=== PATIENT | male | born 1975 | race Caucasian/White ===

== ENCOUNTER 2016-07-28 15:46 | Emergency (ER) | payer OTHER ==
[2016-07-28 16:06] VITALS: BP 124/69; PULSE 77; RESP 18; TEMP 97.7
--- NOTE | 2016-07-28 16:26 | ED ---
ENT HPI - General Chief complaint: Dental/Oral Stated complaint: Dental Pain Time Seen by Provider: 07/28/16 16:08 Source: patient, RN notes reviewed Mode of arrival: ambulatory Limitations: no limitations - History of Present Illness Initial comments: 41-year-old male presents emergency Department chief complaint dental pain, lip swelling. Patient states it started this morning. Patient has multiple bad teeth. Patient states that that he has had ALLERGIC reaction because he had swelling to his lip but states he took Benadryl no relief. Patient states his symptoms are not worsening. Denies any difficulty breathing noted swelling. Patient states she also has an itchy right hand itchy right foot. Patient states that he started this morning also. Patient denies any rashes no fevers no chills. - Related Data Previous Rx's Medication Instructions Recorded Acetaminophen-Codeine 300-30mg 1 tab PO Q4H PRN #20 tablet 07/28/16 [Tylenol #3] Penicillin V Potassium [Pen Vee K] 500 mg PO QID #40 tab 07/28/16 Allergies Allergy/AdvReac Type Severity Reaction Status Date / Time No Known Allergies Allergy Verified 07/28/16 16:10 Review of Systems ROS Statement: Those systems with pertinent positive or pertinent negative responses have been documented in the HPI. ROS Other: All systems not noted in ROS Statement are negative. Past Medical History Past Medical History: No Reported History History of Any Multi-Drug Resistant Organisms: None Reported Past Surgical History: No Surgical Hx Reported Past Psychological History: No Psychological Hx Reported Smoking Status: Current every day smoker Past Alcohol Use History: None Reported Past Drug Use History: None Reported General Exam Limitations: no limitations General appearance: alert, in no apparent distress Head exam: Present: atraumatic, normocephalic, normal inspection Eye exam: Present: normal appearance, PERRL, EOMI. Absent: scleral icterus, conjunctival injection, periorbital swelling ENT exam: Present: mucous membranes moist. Absent: normal oropharynx ( Edentulous, there is mild left lower lip swelling minimally tender, there is mild erythema in the gumline but no drainable abscess.) Neck exam: Present: normal inspection. Absent: tenderness, meningismus, lymphadenopathy Respiratory exam: Present: normal lung sounds bilaterally. Absent: respiratory distress, wheezes, rales, rhonchi, stridor Cardiovascular Exam: Present: regular rate, normal rhythm, normal heart sounds. Absent: systolic murmur, diastolic murmur, rubs, gallop, clicks Extremities exam: Present: normal inspection, full ROM, normal capillary refill. Absent: tenderness, pedal edema, joint swelling, calf tenderness Back exam: Present: normal inspection, full ROM. Absent: tenderness Neurological exam: Present: alert, oriented X3, CN II-XII intact Psychiatric exam: Present: normal affect, normal mood Skin exam: Present: warm, dry, intact, normal color. Absent: rash Course Vital Signs 07/28/16 16:03 Temperature 97.7 F Pulse Rate 77 Respiratory 18 Rate Blood Pressure 124/69 O2 Sat by Pulse 96 Oximetry Medical Decision Making - Medical Decision Making 41-year-old male presented for dental pain. Patient was placed on antibiotics, pain medication at this time. Patient does not appear to be abnormal reaction. Patient was discharged with penicillin and Tylenol with codeine. Return parameters were discussed. Disposition Clinical Impression: Dental infection Disposition: HOME SELF-CARE Condition: Stable Instructions: Toothache (ED) Additional Instructions: Please return to the Emergency Department if symptoms worsen or any other concerns. Prescriptions: Acetaminophen-Codeine 300-30mg [Tylenol #3] 1 tab PO Q4H PRN #20 tablet PRN Reason: pain Penicillin V Potassium [Pen Vee K] 500 mg PO QID #40 tab Referrals: None,Stated [Primary Care Provider] - 1-2 days
== END 2016-07-28 16:30 | disposition home or self-care (01) ==
LOC: EC 15:46
DX: K04.7 Periapical abscess without sinus (principal); F17.200 Nicotine dependence, unspecified, uncomplicated
CPT/HCPCS: 99282

== ENCOUNTER 2017-08-27 17:21 | Emergency (ER) | payer OTHER ==
[2017-08-27 17:38] VITALS: RESP 18
[2017-08-27] MEDS ORDERED: diphenhydrAMINE 50 MG/ML 1 ML VIAL IVP STA (17:54)
[2017-08-27] MEDS ORDERED: SODIUM CHLORIDE 0.9% 1,000 ML IV ONE (17:54)
[2017-08-27] MEDS ORDERED: methylPREDNISolone SOD SUCCI 125 MG/2 ML VIAL IV STA (17:54)
[2017-08-27] MEDS ORDERED: FAMOTIDINE 20 MG TAB PO STA (17:55)
--- NOTE | 2017-08-27 17:56 | ED ---
ENT HPI - General Chief complaint: ENT Stated complaint: facial swelling Time Seen by Provider: 08/27/17 17:39 Source: patient Mode of arrival: ambulatory Limitations: no limitations - History of Present Illness Initial comments: Patient is a 42-year-old male presenting for right-sided facial swelling. He states that he woke up this morning at 9 AM and hadn't significant swelling with the right greater than the left. He states that this happened several months ago but at that time he also had and swelling. This morning, he took some Benadryl but there is minimal response at that time but now he has very improved symptoms. He denies any airway compromise such as tongue swelling, difficulty breathing, difficulty swallowing and states that he does not take any medications at all. He also denies any fevers or chills. - Related Data Home Medications Medication Instructions Recorded Confirmed diphenhydrAMINE HCL [Benadryl] 100 mg PO BID PRN 08/27/17 08/27/17 Previous Rx's Medication Instructions Recorded EPINEPHrine (Auto Inject) [Epipen] 0.3 mg IM ONCE PRN #2 syringe 08/27/17 predniSONE 50 mg PO DAILY #5 tablet 08/27/17 Allergies Allergy/AdvReac Type Severity Reaction Status Date / Time No Known Allergies Allergy Verified 08/27/17 18:21 Review of Systems ROS Statement: Those systems with pertinent positive or pertinent negative responses have been documented in the HPI. Constitutional: Negative for chills, fatigue and fever. HENT: Negative for congestion. Positive for right-sided facial swelling, bilateral lip swelling Respiratory: Negative for chest tightness, shortness of breath and wheezing. Negative for cough Cardiovascular: Negative for chest pain and palpitations. Gastrointestinal: Negative for abdominal pain. Negative for abdominal distention , diarrhea, nausea and vomiting. Genitourinary: Negative for dysuria. Musculoskeletal: Negative for back pain, neck pain and neck stiffness. Skin: Negative for color change. Neurological: Negative for dizziness, speech difficulty, weakness and light- headedness. Psychiatric/Behavioral: Negative for agitation and confusion. Negative for anxiety ROS Other: All systems not noted in ROS Statement are negative. Past Medical History Past Medical History: No Reported History History of Any Multi-Drug Resistant Organisms: None Reported Past Surgical History: No Surgical Hx Reported Past Psychological History: No Psychological Hx Reported Smoking Status: Current every day smoker Past Alcohol Use History: None Reported Past Drug Use History: None Reported General Exam - General Exam Comments Initial Comments: Constitutional: Pt is oriented to person, place, and time. Pt appears well- developed and well-nourished. No distress. HENT: Head: Normocephalic and atraumatic. Mild swelling of the right cheek and lips. No oral pharyngeal swelling or tongue swelling Eyes: EOM are normal. Neck: Normal range of motion. Neck supple. Cardiovascular: Normal rate, regular rhythm, S1 normal, S2 normal and normal heart sounds. Exam reveals no gallop and no friction rub. No murmur heard. Pulmonary/Chest: Effort normal and breath sounds normal. No tachypnea and no bradypnea. No respiratory distress. No wheezes or rales noted. Abdominal: Soft. Bowel sounds are normal. Pt exhibits no shifting dullness, no distension, no pulsatile liver, no fluid wave, no abdominal bruit and no ascites. There is no tenderness. There is no rigidity, no rebound, no guarding, no tenderness at McBurney's point and negative Farrar's sign. Musculoskeletal: Normal range of motion. Neurological: Pt is alert and oriented to person, place, and time. No cranial nerve deficit. Skin: Skin is warm and dry. No rash noted. Pt is not diaphoretic. No erythema. No pallor. Psychiatric: Pt has a normal mood and affect. Pt behavior is normal. Thought content normal. Limitations: no limitations Course Vital Signs 08/27/17 17:35 Temperature 97.8 F Pulse Rate 70 Respiratory 18 Rate Blood Pressure 133/81 O2 Sat by Pulse 97 Oximetry Medical Decision Making - Medical Decision Making Based on H&P, this appears to be secondary to an ALLERGIC reaction of unknown etiology. This is not likely to be drug induced angioedema as the patient denies any medication usage. Patient was given Solu-Medrol, Zantac, here in the emergency department as well as Benadryl and continue to see improvement of the facial swelling. Advanced imaging was not completed as there did not appear to be any infectious process. Also, there is no airway compromise and the patient was talking without any slurring of speech and swallowing his own secretions. Because of this, it is felt that the patient could be safely discharged with a prescription for prednisone as well as epinephrine injector. He was also advised to take Benadryl for next 24-48 hours. He was advised to follow up with PCP in next 1-2 days which she was agreeable to. Disposition Clinical Impression: Allergic reaction Disposition: HOME SELF-CARE Condition: Good Instructions: Urticaria (ED), Allergies (ED) Prescriptions: EPINEPHrine (Auto Inject) [Epipen] 0.3 mg IM ONCE PRN #2 syringe PRN Reason: Anaphylaxis predniSONE 50 mg PO DAILY #5 tablet Is patient prescribed a controlled substance at d/c from ED?: No Referrals: None,Stated [Primary Care Provider] - 1-2 days Time of Disposition: 19:09
[2017-08-27 19:28] VITALS: BP 121/75; PULSE 56; TEMP 97.7
== END 2017-08-27 19:28 | disposition home or self-care (01) ==
LOC: EC 17:21
DX: T78.40XA Allergy, unspecified, initial encounter (principal); F17.200 Nicotine dependence, unspecified, uncomplicated
CPT/HCPCS: 99283; 96374; 96375; 96361; J1200; J2930

== ENCOUNTER 2017-09-18 14:39 | Emergency (ER) | payer OTHER ==
[2017-09-18] MEDS ORDERED: methylPREDNISolone SOD SUCCI 125 MG/2 ML VIAL IV STA (15:48)
[2017-09-18 16:10] LABS: Basophils % (A) 0 %; Eosinophils # (A) 0.2 k/uL (0-0.7); Eosinophils % (A) 2 %; HCT 50.2 % (39.0-53.0); HGB 16.5 gm/dL (13.0-17.5); Lymphocytes # (A) 2.1 k/uL (1.0-4.8); Lymphocytes % (A) 21 %; MCH 30.2 pg (25.0-35.0); MCHC 32.8 g/dL (31.0-37.0); MCV 92.1 fL (80.0-100.0); Mean Platelet Volume 7.3; Monocytes # (A) 0.5 k/uL (0-1.0); Monocytes % (A) 5 %; Neutrophils # (A) 7.1 k/uL (1.3-7.7); Neutrophils % (A) 70 %; Platelet Count 227 k/uL (150-450); RBC 5.45 m/uL (4.30-5.90); RDW 13.4 % (11.5-15.5); WBC 10.1 k/uL (3.8-10.6)
--- NOTE | 2017-09-18 16:24 | XR ---
EXAMINATION TYPE: XR hand complete RT DATE OF EXAM: 09/18/2017 CLINICAL HISTORY: Right hand pain and swelling with no known injury TECHNIQUE: Frontal, lateral and oblique images of the right hand are obtained. COMPARISON: None. FINDINGS: There is no acute fracture/dislocation evident in the right hand. The joint spaces in the right hand appear within normal limits. The overlying soft tissue appears unremarkable. IMPRESSION: There is no acute fracture or dislocation in the right hand.
[2017-09-18 16:34] LABS: Albumin 4.2 g/dL (3.5-5.0); Anion Gap 7 mmol/L; Carbon Dioxide 26 mmol/L (22-30); Chloride 106 mmol/L (98-107); Glucose 91 mg/dL (74-99); Sodium 139 mmol/L (137-145); Total Bilirubin 0.9 mg/dL (0.2-1.3); Total Protein 7.1 g/dL (6.3-8.2); Uric Acid 6.3 mg/dL (3.5-8.5)
[2017-09-18 16:38] LABS: ALT 27 U/L (21-72); AST 31 U/L (17-59); Alkaline Phosphatase 92 U/L (38-126); Blood Urea Nitrogen 18 mg/dL (9-20); Potassium 5.5 mmol/L (3.5-5.1)
--- NOTE | 2017-09-18 16:53 | ED ---
Extremity Problem HPI - General Chief complaint: Extremity Problem,Nontraumatic Stated complaint: Swollen hand Time Seen by Provider: 09/18/17 15:28 Source: patient, RN notes reviewed, old records reviewed Mode of arrival: ambulatory Limitations: no limitations - History of Present Illness Initial comments: This patient is a 42 year old male with CC of swollen R hand for 2 days. HE reports that it is pruritic. Denies any new contacts, bites, or other symptoms associated with this. He has been on steriods intermittently. He is having testing with battery charger because he has had this symptoms intermittently for the past 2 years. He stopped steriods 2 days ago prior to the onset of swelling. Denies any shortness of breath, tongue swelling. Denies trauma to hand. - Related Data Home Medications Medication Instructions Recorded Confirmed diphenhydrAMINE HCL [Benadryl] 100 mg PO BID PRN 08/27/17 08/27/17 Previous Rx's Medication Instructions Recorded EPINEPHrine (Auto Inject) [Epipen] 0.3 mg IM ONCE PRN #2 syringe 08/27/17 predniSONE 50 mg PO DAILY #5 tablet 08/27/17 predniSONE 10 mg PO DAILY #15 tab 09/18/17 Allergies Allergy/AdvReac Type Severity Reaction Status Date / Time No Known Allergies Allergy Verified 09/18/17 14:48 Review of Systems ROS Statement: Those systems with pertinent positive or pertinent negative responses have been documented in the HPI. ROS Other: All systems not noted in ROS Statement are negative. Past Medical History Past Medical History: No Reported History History of Any Multi-Drug Resistant Organisms: None Reported Past Surgical History: No Surgical Hx Reported Past Psychological History: No Psychological Hx Reported Smoking Status: Current every day smoker Past Alcohol Use History: None Reported Past Drug Use History: None Reported General Exam - General Exam Comments Initial Comments: This is a 42 year old male, no distress. Limitations: no limitations General appearance: alert, in no apparent distress Head exam: Present: atraumatic, normocephalic, normal inspection Eye exam: Present: normal appearance, PERRL, EOMI. Absent: scleral icterus, conjunctival injection, periorbital swelling ENT exam: Present: normal exam, mucous membranes moist Neck exam: Present: normal inspection. Absent: tenderness, meningismus, lymphadenopathy Respiratory exam: Present: normal lung sounds bilaterally. Absent: respiratory distress, wheezes, rales, rhonchi, stridor Cardiovascular Exam: Present: regular rate, normal rhythm, normal heart sounds. Absent: systolic murmur, diastolic murmur, rubs, gallop, clicks GI/Abdominal exam: Present: soft, normal bowel sounds. Absent: distended, tenderness, guarding, rebound, rigid Extremities exam: Present: normal inspection, full ROM, normal capillary refill , other (swelling of R hand, full ROM. Normal capillary refill. ). Absent: tenderness, pedal edema, joint swelling, calf tenderness Back exam: Present: normal inspection Neurological exam: Present: alert, oriented X3, CN II-XII intact Psychiatric exam: Present: normal affect, normal mood Skin exam: Present: warm, dry, intact, normal color. Absent: rash Course Vital Signs 09/18/17 09/18/17 14:45 17:25 Temperature 98.1 F 98.4 F Pulse Rate 72 71 Respiratory 20 16 Rate Blood Pressure 158/75 150/78 O2 Sat by Pulse 98 98 Oximetry Medical Decision Making - Medical Decision Making This is a 42 year old male with CC of right hand swelling. Patient has full ROM. Synptoms started after DC steriods before allergiy testing next week. Patient at this time has no erythema, bite greenwood or concern for infection etiology. He has had this extremity swelling in the past. At this time lab work was unremarkable. Patient hand xray shows no other abnormalities. At this time I discussed resuming steriods and following up with testing on next week with battery charger. - Lab Data Result diagrams: 09/18/17 15:55 09/18/17 15:55 Lab Results 09/18/17 09/18/17 Range/Units 15:55 15:55 WBC 10.1 (3.8-10.6) k/uL RBC 5.45 (4.30-5.90) m/uL Hgb 16.5 (13.0-17.5) gm/dL Hct 50.2 (39.0-53.0) % MCV 92.1 (80.0-100.0) fL MCH 30.2 (25.0-35.0) pg MCHC 32.8 (31.0-37.0) g/dL RDW 13.4 (11.5-15.5) % Plt Count 227 (150-450) k/uL Neutrophils % 70 % Lymphocytes % 21 % Monocytes % 5 % Eosinophils % 2 % Basophils % 0 % Neutrophils # 7.1 (1.3-7.7) k/uL Lymphocytes # 2.1 (1.0-4.8) k/uL Monocytes # 0.5 (0-1.0) k/uL Eosinophils # 0.2 (0-0.7) k/uL Basophils # 0.0 (0-0.2) k/uL Sodium 139 (137-145) mmol/L Potassium 5.5 H (3.5-5.1) mmol/L Chloride 106 (98-107) mmol/L Carbon Dioxide 26 (22-30) mmol/L Anion Gap 7 mmol/L BUN 18 (9-20) mg/dL Creatinine 0.72 (0.66-1.25) mg/dL Est GFR (CKD-EPI)AfAm >90 (>60 ml/min/1.73 sqM) Est GFR (CKD-EPI)NonAf >90 (>60 ml/min/1.73 sqM) Glucose 91 (74-99) mg/dL Uric Acid 6.3 (3.5-8.5) mg/dL Calcium 9.0 (8.4-10.2) mg/dL Total Bilirubin 0.9 (0.2-1.3) mg/dL AST 31 (17-59) U/L ALT 27 (21-72) U/L Alkaline Phosphatase 92 (38-126) U/L Total Protein 7.1 (6.3-8.2) g/dL Albumin 4.2 (3.5-5.0) g/dL - Radiology Data Radiology results: report reviewed Hand xray is negative for any acute process. 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 Return to emergency department if any alarming signs or symptoms occur. Prescriptions: predniSONE 10 mg PO DAILY #15 tab Is patient prescribed a controlled substance at d/c from ED?: No Referrals: Levi Cooper MD [Primary Care Provider] - 1-2 days Time of Disposition: 16:52
[2017-09-18] MEDS ORDERED: diphenhydrAMINE 50 MG/ML 1 ML VIAL IVP STA (17:00)
[2017-09-18 17:26] VITALS: BP 150/78; PULSE 71; RESP 16; TEMP 98.4
== END 2017-09-18 17:25 | disposition home or self-care (01) ==
LOC: EC 14:39
DX: T78.40XA Allergy, unspecified, initial encounter (principal); R60.0 Localized edema; F17.200 Nicotine dependence, unspecified, uncomplicated
CPT/HCPCS: 36415; 80053; 84550; 85025; 73130; 99284; 96374; 96375; J1200; J2930

== ENCOUNTER 2017-10-10 15:37 | Emergency (ER) | payer OTHER ==
[2017-10-10 16:01] VITALS: BP 131/89; PULSE 79; RESP 16; TEMP 98.6
[2017-10-10] MEDS ORDERED: LIDOCAINE 1% INJ 10MG/ML (20 ML MDV) SQ ONE (17:57)
[2017-10-10] MEDS ORDERED: HYDROcodone/APAP 5-325MG 1 EACH TAB PO STA (18:44)
--- NOTE | 2017-10-10 18:57 | ED ---
General Adult HPI - General Chief complaint: Skin/Abscess/Foreign Body Stated complaint: abscess rt underarm Time Seen by Provider: 10/10/17 16:29 Source: patient, RN notes reviewed Mode of arrival: ambulatory Limitations: no limitations - History of Present Illness Initial comments: 42-year-old male presents to the emergency determine for chief complaint of abscess to the right armpit for 1 week. Patient states they have become increasingly painful. Patient states he has never had an abscess before including in his right armpit. Patient denies any other pain in the right arm. Patient denies any fevers or chills at home. Patient denies any history of MRSA. Patient states he has not been taking pain medications or doing warm compresses. Patient states he does have good follow-up with primary care. Patient denies any ALLERGIES to antibiotics. Patient has no other complaints at this time including shortness of breath, chest pain, abdominal pain, nausea or vomiting, headache, or visual changes. - Related Data Previous Rx's Medication Instructions Recorded Cephalexin [Keflex] 500 mg PO Q6H 10 Days cap 10/10/17 Clindamycin HCl [Cleocin] 450 mg PO Q8H 10 Days cap 10/10/17 Allergies Allergy/AdvReac Type Severity Reaction Status Date / Time No Known Allergies Allergy Verified 10/10/17 16:01 Review of Systems ROS Statement: Those systems with pertinent positive or pertinent negative responses have been documented in the HPI. ROS Other: All systems not noted in ROS Statement are negative. Past Medical History Past Medical History: No Reported History History of Any Multi-Drug Resistant Organisms: None Reported Past Surgical History: No Surgical Hx Reported Past Psychological History: No Psychological Hx Reported Smoking Status: Current every day smoker Past Alcohol Use History: None Reported Past Drug Use History: None Reported General Exam Limitations: no limitations General appearance: alert, in no apparent distress Head exam: Present: atraumatic, normocephalic, normal inspection Eye exam: Present: normal appearance, PERRL, EOMI. Absent: scleral icterus, conjunctival injection ENT exam: Present: normal exam, mucous membranes moist Neck exam: Present: normal inspection, full ROM. Absent: tenderness, meningismus, lymphadenopathy Respiratory exam: Present: normal lung sounds bilaterally. Absent: respiratory distress, wheezes, rales, rhonchi, stridor Cardiovascular Exam: Present: regular rate, normal rhythm, normal heart sounds. Absent: systolic murmur, diastolic murmur, rubs, gallop, clicks Extremities exam: Present: full ROM (Full range of motion of the right arm including the shoulder elbow and hand), tenderness (Tenderness to the armpit where abscesses are present), normal capillary refill (Capillary refill less than 2 seconds and radial pulse 2+ in the right upper extremity), other ( Patient has 3 visible abscesses in the right armpit. No evidence of a cellulitic infection. No drainage at this time. No streaking redness.) Neurological exam: Present: alert, oriented X3, CN II-XII intact Psychiatric exam: Present: normal affect, normal mood Course Vital Signs 10/10/17 15:59 Temperature 98.6 F Pulse Rate 79 Respiratory 16 Rate Blood Pressure 131/89 O2 Sat by Pulse 98 Oximetry Procedures - Procedures Initial comment: Consent: Verbal consent obtained. Risks and benefits: risks, benefits and alternatives were discussed Type: 3 abscesses Location details: right axilla Anesthesia: local infiltration Local anesthetic: lidocaine 1% Anesthetic total: 1 ml Scalpel size: 11 blade using sterile technique Incision type: single straight Complexity: simple Drainage: purulent Drainage amount: moderate Patient tolerance: Patient tolerated the procedure well with no immediate complications Medical Decision Making - Medical Decision Making 42-year-old male with a chief complaint of abscesses and right armpit. Patient has never had this before. Patient denies fevers or chills. He states he is feeling normal besides for the pain in his right armpit. Neurovascular intact in the right upper extremity. Patient has 3 visible abscesses. Ultrasound was used to identify any deeper abscesses which were not found. These were numbed with lidocaine and incised and drained. Patient does have 3 abscesses that are likely a hidradenitis Cipro to the. Patient states he has good follow-up with primary care so will follow up with them for possible general surgery referral. He will be given clindamycin as that is what is recommended for hidradenitis. Patient will also be given Keflex to prevent any signs of a cellulitic infection. He will return if he has any fevers or systemic symptoms that she is aware of. He was given a pain medication in the emergency department. Again he will follow up with primary care tomorrow and agrees to do so. Disposition Clinical Impression: Hidradenitis suppurativa of right axilla Disposition: HOME SELF-CARE Condition: Good Instructions: Abscess Incision and Drainage (ED) Additional Instructions: Please take antibiotics as directed. Follow-up with primary care in 1-2 days. Return to the emergency department if he has any worsening symptoms or signs of infection. Prescriptions: Cephalexin [Keflex] 500 mg PO Q6H 10 Days cap Clindamycin HCl [Cleocin] 450 mg PO Q8H 10 Days cap Is patient prescribed a controlled substance at d/c from ED?: No Referrals: Levi Cooper MD [Primary Care Provider] - 1-2 days Time of Disposition: 18:55
[2017-10-10] MEDS ORDERED: Acetaminophen-Codeine 300-30mg TAB PO STA (18:59)
== END 2017-10-10 19:11 | disposition home or self-care (01) ==
LOC: EC 15:37
DX: L73.2 Hidradenitis suppurativa (principal); F17.200 Nicotine dependence, unspecified, uncomplicated
CPT/HCPCS: 87070; 87205; 99283; 10061; J2001; 87077; 87186

== ENCOUNTER 2018-03-10 17:45 | Emergency (ER) | payer OTHER ==
[2018-03-10 17:58] VITALS: BP 131/69; PULSE 79; RESP 18; TEMP 97.7
[2018-03-10] MEDS ORDERED: diphenhydrAMINE 50 MG CAP PO STA (18:39)
--- NOTE | 2018-03-10 20:11 | ED ---
General Adult HPI - General Chief complaint: Eye Problems Stated complaint: left eye swelling Source: patient, RN notes reviewed, old records reviewed Mode of arrival: ambulatory Limitations: no limitations - History of Present Illness Initial comments: 42-year-old male patient no pertinent past history presents to ED with 1 day of left eye swelling. Patient states that he woke up this morning and noticed that his left eye little swollen. Patient has no other complaints. Patient has no rash, other swelling on body. Patient denies any difficulty breathing, swelling in mouth or tongue. Patient denies any new potential triggers include including foods cleaning agents, allergens. Patient denies any pain in eye, decreased visual acuity. Patient denies other complaints. Systemic: Pt denies fatigue, myalgia, fever/chills. Pt denies weakness, night sweats, weight loss. Neuro: Pt denies headache, visual disturbances, syncope or pre-syncope. HEENT: Pt denies ocular discharge or irritation, otalgia, rhinorrhea, pharyngitis or notable lymphadenopathy. Cardiopulmonary: Pt denies chest pain, SOB, heart palpitations, dyspnea on exertion. Abdominal/GI: Pt denies abdominal pain, n/v/d. : Pt denies dysuria, burning w/ urination, frequency/urgency. Denies new onset urinary or bowel incontinence. MSK: Pt denies myalgia, loss of strength or function in extremities. Neuro: Pt denies new onset weakness, paresthesias. - Related Data Previous Rx's Medication Instructions Recorded Cephalexin [Keflex] 500 mg PO Q6H 10 Days cap 10/10/17 Clindamycin HCl [Cleocin] 450 mg PO Q8H 10 Days cap 10/10/17 EPINEPHrine [Epipen 2-Harshad] 0.3 mg IM ONCE PRN #2 pen 03/10/18 diphenhydrAMINE [Benadryl] 1 - 2 tab PO Q6HR PRN #30 capsule 03/10/18 predniSONE 50 mg PO DAILY #5 tab 03/10/18 Allergies Allergy/AdvReac Type Severity Reaction Status Date / Time No Known Allergies Allergy Verified 03/10/18 17:55 Review of Systems ROS Statement: Those systems with pertinent positive or pertinent negative responses have been documented in the HPI. ROS Other: All systems not noted in ROS Statement are negative. Past Medical History Past Medical History: No Reported History History of Any Multi-Drug Resistant Organisms: None Reported Past Surgical History: No Surgical Hx Reported Past Psychological History: No Psychological Hx Reported Smoking Status: Current every day smoker Past Alcohol Use History: Occasional Past Drug Use History: Marijuana General Exam - General Exam Comments Initial Comments: Constitutional: NAD, AOX3, Pt has pleasant affect. HEENT: NC/AT, trachea midline, neck supple, no lymphadenopathy. Posterior pharynx non erythematous, without exudates. External ears appear normal, without discharge. Mucous membranes moist. Eyes PERRLA, EOM intact. There is no scleral icterus, no injection. Mild amount of edema located above L eye. No pallor noted. Visual acuity 20/40 bilaterally. Cardiopulmonary: RRR, no murmurs, rubs or gallops, no JVD noted. Lungs CTAB in anterior and posterior foote. No peripheral edema. Abdominal exam: Abdomen soft and non-distended. Abdomen non-tender to palpation in all 4 quadrants. Bowel sounds active in LLQ. No hepatosplenomegaly. No ecchymosis Neuro: CN II-XII grossly intact. No nuchal rigidity. MSK: No posterior calf tenderness bilaterally, homans sign negative bilaterally. Posterior tibialis and radial pulse +2 bilaterally. Sensation intact in upper and lower extremities. Full active ROM in upper and lower extremities, 5/5 stregnth. Derm: No rash noted. Limitations: no limitations Course Vital Signs 03/10/18 17:55 Temperature 97.7 F Pulse Rate 79 Respiratory 18 Rate Blood Pressure 131/69 O2 Sat by Pulse 97 Oximetry Medical Decision Making - Medical Decision Making 42-year-old male patient no pertinent past history presents to ED with 1 day of left eye swelling. Patient states that he woke up this morning and noticed that his left eye little swollen. Patient has no other complaints. Patient has no rash, other swelling on body. PT VSS, afebrile. Pt physical exam displayed Mild amount of edema located above L eye. No injection, EOM intace, eyes PERRLA. Visual acuity 20/40 bilaterally. Patient administered Benadryl in ED. Patient to be treated for ALLERGIC reaction. Patient prescribed Benadryl, prednisone 5 x 50, epi pen. Patient to follow up with primary care provider tomorrow. Patient to return to ED if any new signs symptoms develop, any other swelling develops at all. Case discussed in depth with Dr. Ortiz. Disposition Clinical Impression: Allergic reaction Disposition: HOME SELF-CARE Condition: Stable Instructions: General Allergic Reaction (ED) Additional Instructions: Patient to adhere to previously discussed treatment plan and will take medication(s) as directed. Patient to follow up with PCP in 1-2 days. Patient to return to ED if symptoms do not improve. Prescriptions: diphenhydrAMINE [Benadryl] 1 - 2 tab PO Q6HR PRN #30 capsule PRN Reason: Allergic Reaction EPINEPHrine [Epipen 2-Harshad] 0.3 mg IM ONCE PRN #2 pen PRN Reason: for anaphylaxis predniSONE 50 mg PO DAILY #5 tab Is patient prescribed a controlled substance at d/c from ED?: No Referrals: Levi Cooper MD [Primary Care Provider] - 1-2 days
== END 2018-03-10 20:15 | disposition home or self-care (01) ==
LOC: EC 17:45
DX: T78.40XA Allergy, unspecified, initial encounter (principal); F17.200 Nicotine dependence, unspecified, uncomplicated
CPT/HCPCS: 99283

== ENCOUNTER 2020-06-23 10:52 | Emergency (ER) | payer OTHER ==
[2020-06-23 10:57] VITALS: BP 145/91; PULSE 79; RESP 18; TEMP 98.1
--- NOTE | 2020-06-23 11:16 | ED ---
General Adult HPI - General Chief complaint: Allergic Reaction Stated complaint: ENT Time Seen by Provider: 06/23/20 11:05 Source: patient, EMS, RN notes reviewed Mode of arrival: EMS Limitations: no limitations - History of Present Illness Initial comments: Patient is a 45-year-old male that presents to emergency department with a swollen throat sensation. He notes that it all started this morning. He notes that it will be difficult to talk swallow and breathe. He is saturating well on room air oxygen. He notes that he's had this problem in the past and has not found any answers even going to an gymnastics coach or instructor and to the hospital several times. He was in no apparent distress or pain while laying back in bed during the exam and interview. He denied any chest pain headache nausea vomiting diarrhea constipation fever fatigue chills he is able to swallow oral secretions. - Related Data Previous Rx's Medication Instructions Recorded Amoxicillin/Potassium Clav 1 tab PO Q12HR #20 tab 06/23/20 [Augmentin 875-125 Tablet] Allergies Allergy/AdvReac Type Severity Reaction Status Date / Time No Known Allergies Allergy Verified 06/23/20 11:49 Review of Systems ROS Statement: Those systems with pertinent positive or pertinent negative responses have been documented in the HPI. ROS Other: All systems not noted in ROS Statement are negative. Past Medical History Past Medical History: No Reported History History of Any Multi-Drug Resistant Organisms: None Reported Past Surgical History: No Surgical Hx Reported Past Psychological History: No Psychological Hx Reported Smoking Status: Current every day smoker Past Alcohol Use History: Occasional Past Drug Use History: Marijuana General Exam Limitations: no limitations General appearance: alert, in no apparent distress Head exam: Present: atraumatic, normocephalic, normal inspection Eye exam: Present: normal appearance, PERRL, EOMI. Absent: scleral icterus, conjunctival injection, periorbital swelling ENT exam: Present: normal exam, mucous membranes moist, other (Inflamed and swollen uvula no deviation) Neck exam: Present: normal inspection. Absent: tenderness Respiratory exam: Present: normal lung sounds bilaterally. Absent: respiratory distress, wheezes, rales, rhonchi, stridor Cardiovascular Exam: Present: regular rate, normal rhythm, normal heart sounds. Absent: systolic murmur, diastolic murmur, rubs, gallop, clicks GI/Abdominal exam: Present: soft, normal bowel sounds. Absent: distended, tenderness, guarding, rebound, rigid Extremities exam: Present: normal inspection, full ROM, normal capillary refill. Absent: tenderness, pedal edema, joint swelling, calf tenderness Neurological exam: Present: alert, oriented X3, CN II-XII intact Psychiatric exam: Present: normal affect, normal mood Skin exam: Present: warm, dry, intact, normal color. Absent: rash Course Vital Signs 06/23/20 10:54 Temperature 98.1 F Pulse Rate 79 Respiratory 18 Rate Blood Pressure 145/91 O2 Sat by Pulse 98 Oximetry Medical Decision Making - Medical Decision Making 45-year-old male complaining of swollen throat sensation. Strep test, heterophile test, CBC, CMP, x-ray of the soft tissue neck ordered. X-ray shows some soft tissue swelling in the prevertebral tissue. Case discussed with Dr. Amador, 10 mg of Decadron ordered and patient discharge home on antibiotic therapy. - Lab Data Result diagrams: 06/23/20 11:29 Lab Results 06/23/20 06/23/20 Range/Units 11:29 11:29 WBC 8.3 (3.8-10.6) k/uL RBC 5.22 (4.30-5.90) m/uL Hgb 16.6 (13.0-17.5) gm/dL Hct 46.6 (39.0-53.0) % MCV 89.3 (80.0-100.0) fL MCH 31.7 (25.0-35.0) pg MCHC 35.5 (31.0-37.0) g/dL RDW 13.2 (11.5-15.5) % Plt Count 253 (150-450) k/uL MPV 9.2 Neutrophils % 67 % Lymphocytes % 21 % Monocytes % 7 % Eosinophils % 4 % Basophils % 1 % Neutrophils # 5.6 (1.3-7.7) k/uL Lymphocytes # 1.8 (1.0-4.8) k/uL Monocytes # 0.6 (0-1.0) k/uL Eosinophils # 0.3 (0-0.7) k/uL Basophils # 0.1 (0-0.2) k/uL Group A Strep Rapid Negative (Negative) - Radiology Data Radiology results: report reviewed, image reviewed X-ray of the soft tissue of the neck: Mild thickening of the prevertebral soft tissue structures as well as the lingular tonsils. Borderline thickening of the epiglottis correlate for epiglottitis tonsillitis or retropharyngeal pharyngitis. Disposition Clinical Impression: Epiglottitis Disposition: HOME SELF-CARE Condition: Stable Instructions (If sedation given, give patient instructions): Epiglottitis (DC) Additional Instructions: Please return to the Emergency Department if symptoms worsen or any other concerns. Follow-up with primary care in 3-5 days. Take antibiotics as prescribed until complete. Please return if symptoms worsen or difficulty breathing/swallowing occur. Is patient prescribed a controlled substance at d/c from ED?: No Referrals: Levi Cooper MD [Primary Care Provider] - 1-2 days Time of Disposition: 12:27
[2020-06-23 11:40] LABS: Basophils # (A) 0.1 k/uL (0-0.2); Basophils % (A) 1 %; Eosinophils # (A) 0.3 k/uL (0-0.7); Eosinophils % (A) 4 %; HCT 46.6 % (39.0-53.0); HGB 16.6 gm/dL (13.0-17.5); Lymphocytes # (A) 1.8 k/uL (1.0-4.8); Lymphocytes % (A) 21 %; MCH 31.7 pg (25.0-35.0); MCHC 35.5 g/dL (31.0-37.0); MCV 89.3 fL (80.0-100.0); Mean Platelet Volume 9.2; Monocytes # (A) 0.6 k/uL (0-1.0); Monocytes % (A) 7 %; Neutrophils # (A) 5.6 k/uL (1.3-7.7); Neutrophils % (A) 67 %; Platelet Count 253 k/uL (150-450); RBC 5.22 m/uL (4.30-5.90); RDW 13.2 % (11.5-15.5); WBC 8.3 k/uL (3.8-10.6)
--- NOTE | 2020-06-23 11:51 | XR ---
EXAMINATION TYPE: XR soft tissue neck DATE OF EXAM: 06/23/2020 COMPARISON: NONE HISTORY: Pain TECHNIQUE: 2 view submitted FINDINGS: There is prominence of the lingular tonsils. There is mild prominence the prevertebral soft tissue structures. Epiglottis mildly thickened. Hypertrophic and degenerative change of the spine. M etallic density overlying the tip of the odontoid could be superficial to the patient. IMPRESSION: 1. Mild thickening of the prevertebral soft tissue structures as well as the lingular tonsils. Border line thickening of the epiglottis correlate for epiglottitis, tonsillitis or retropharyngeal pharyngi tis.
[2020-06-23] MEDS ORDERED: DEXAMETHASONE SOD PHOSPHATE 10 MG/ML 1 ML VIAL IM STA (12:26)
[2020-06-23 12:49] LABS: ALT 23 U/L (4-49); AST 26 U/L (17-59); African American GFR (CKD) >90 (>60 ml/min/1.73 sqM); Albumin 4.1 g/dL (3.5-5.0); Alkaline Phosphatase 139 U/L (38-126); Anion Gap 7 mmol/L; Blood Urea Nitrogen 16 mg/dL (9-20); Calcium 9.4 mg/dL (8.4-10.2); Carbon Dioxide 27 mmol/L (22-30); Chloride 104 mmol/L (98-107); Glucose 106 mg/dL (74-99); Non-African American GFR(CKD) >90 (>60 ml/min/1.73 sqM); Potassium 4.1 mmol/L (3.5-5.1); Sodium 138 mmol/L (137-145); Total Bilirubin 0.8 mg/dL (0.2-1.3); Total Protein 6.7 g/dL (6.3-8.2)
== END 2020-06-23 13:15 | disposition home or self-care (01) ==
LOC: EC 10:52
DX: J05.10 Acute epiglottitis without obstruction (principal); F17.200 Nicotine dependence, unspecified, uncomplicated
CPT/HCPCS: 36415; 80053; 85025; 86308; 87081; 87430; 70360; 99285; 96372; J1100

== ENCOUNTER 2020-08-08 16:13 | Emergency (ER) | payer OTHER ==
[2020-08-08 16:19] VITALS: TEMP 98.2
[2020-08-08] MEDS ORDERED: TRANEXAMIC ACID 1,000 MG in SODIUM CHLORIDE 0.9% 100 ML IVPB ONE (16:42)
[2020-08-08] MEDS ORDERED: FAMOTIDINE 20 MG/2 ML VIAL IV STA (16:42)
[2020-08-08] MEDS ORDERED: DEXAMETHASONE SOD PHOSPHATE 10 MG/ML 1 ML VIAL IV STA (16:42)
[2020-08-08] MEDS ORDERED: diphenhydrAMINE 50 MG/ML 1 ML VIAL IVP STA (16:42)
--- NOTE | 2020-08-08 16:45 | ED ---
General Adult HPI - General Chief complaint: Allergic Reaction Stated complaint: ENT/Hands Swelling Time Seen by Provider: 08/08/20 16:32 Source: patient Mode of arrival: ambulatory Limitations: no limitations - History of Present Illness Initial comments: Dictation was produced using [employer] dictation software. please excuse any grammatical, word or spelling errors. Chief Complaint: 45-year-old male presents emergency Department with hand swelling and sensation of throat swelling History of Present Illness: Patient is a 45-year-old male who states that he has had hand swelling throat swelling multiple times in the past. Patient states they come on randomly. Denies taking any lisinopril. Patient states that the last 12 hours he has had some sensation of throat swelling and bilateral hand swelling. He states that the swelling jumps around. Sometimes it's in various locations. He states his mother had similar issues. Patient does not have any other complaints. Feels like his voice sounds a little bit lower than usual. The ROS documented in this emergency department record has been reviewed and confirmed by me. Those systems with pertinent positive or negative responses have been documented in the HPI. All other systems are other negative and/or noncontributory. PHYSICAL EXAM: General Impression: Alert and oriented x3, not in acute distress, normal voice, no stridor tolerating secretions HEENT: Normocephalic atraumatic, extra-ocular movements intact, pupils equal and reactive to light bilaterally, mucous membranes moist. Cardiovascular: Heart regular rate and rhythm Chest: Able to complete full sentences, no retractions, no tachypnea Abdomen: abdomen soft, non-tender, non-distended, no organomegaly Musculoskeletal: Pulses present and equal in all extremities, swelling to the bilateral hands with mild pitting edema Motor: no focal deficits noted Neurological: CN II-XII grossly intact, no focal motor or sensory deficits noted Skin: Intact with no visualized rashes Psych: Normal affect and mood ED course: 45-year-old male with clinical presentation consistent with angioedema. There is concern that there is a hereditary component versus an idiopathic component. Patient does not meet criteria for appendectomy administration. Is not showing signs of upper airway distress. He has normal phone he and not showing any signs of distress. Vital signs upon arrival are within acceptable limits. Patient was observed in emergency prior for approximately 3 hours. He was given Decadron diphenhydramine Pepcid and take say. Patient related bedside with improvement of symptoms. He still has some hand swelling but he feels significant improvement in his throat. Continues to have no signs of respiratory distress. He is has a normal voice tolerating secretions. He was better. This point patient's clear for discharge is advised follow up with his PCP. Return precautions discussed. Patient is understandable and agreeable. - Related Data Home Medications Medication Instructions Recorded Confirmed No Known Home Medications 08/08/20 08/08/20 Allergies Allergy/AdvReac Type Severity Reaction Status Date / Time No Known Allergies Allergy Verified 08/08/20 16:18 Review of Systems ROS Statement: Those systems with pertinent positive or pertinent negative responses have been documented in the HPI. ROS Other: All systems not noted in ROS Statement are negative. Past Medical History Past Medical History: No Reported History History of Any Multi-Drug Resistant Organisms: None Reported Past Surgical History: No Surgical Hx Reported Past Psychological History: No Psychological Hx Reported Smoking Status: Current every day smoker Past Alcohol Use History: Occasional Past Drug Use History: Marijuana General Exam Limitations: no limitations Course Vital Signs 08/08/20 08/08/20 16:15 18:30 Temperature 98.2 F Pulse Rate 82 58 L Respiratory 18 20 Rate Blood Pressure 136/87 117/75 O2 Sat by Pulse 98 98 Oximetry Disposition Clinical Impression: Angioedema Disposition: HOME SELF-CARE Condition: Fair Instructions (If sedation given, give patient instructions): Angioedema (ED) Additional Instructions: ask your PCP about Hereditary Angioedema Is patient prescribed a controlled substance at d/c from ED?: No Referrals: Levi Cooper MD [Primary Care Provider] - 1-2 days
[2020-08-08 18:41] VITALS: BP 117/75; PULSE 58; RESP 20
== END 2020-08-08 19:00 | disposition home or self-care (01) ==
LOC: EC 16:13
DX: T78.3XXA Angioneurotic edema, initial encounter (principal); F17.200 Nicotine dependence, unspecified, uncomplicated; F12.90 Cannabis use, unspecified, uncomplicated
CPT/HCPCS: 99283 ×2; 96365 ×2; 96366 ×2; 96375 ×4; J1200; J1100

== ENCOUNTER 2024-07-16 20:26 | Observation (INO) | payer OTHER ==
[2024-07-16 20:32] LABS: Glucose,Whole Blood 125 mg/dL (70-110)
[2024-07-16] MEDS: SODIUM CHLORIDE 0.9% 1,000 ML IV STA (21:06)
--- NOTE | 2024-07-16 21:26 | CT ---
EXAMINATION TYPE: CT brain wo con DATE OF EXAM: 07/16/2024 9:20 PM COMPARISON: None. CLINICAL INDICATION: Male, 49 years old with history of seizure activity, Pt was found down outside b y girlfriend. Pt was convulsing per EMS. Pt was found to be postictal by EMS. Pt currently A & O 3. P t denies any seizure Hx. TECHNIQUE: CT of the brain is performed utilizing 3 mm thick sections through the posterior fossa and 3 mm thick sections through the remaining calvarium. Study is performed within 24 hours of arrival to the hospital. Contrast used: mL of , (none if empty) CT DLP: 1207.9 mGycm, Automated exposure control for dose reduction was used. FINDINGS: No abnormal hyperdensity is present to suggest an acute intracranial hemorrhage. No mass lesion is evident. No acute infarcts are evident. Ventricles and sulci are appropriate for the patient age. There is some mucosal thickening through the ethmoid air cells and right sphenoid sinus. 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 The coastal thickening is seen in the left maxillary sinus. Remaining paranasal sin uses and mastoid air cells are clear. No acute fractures are evident. IMPRESSION: 1. No acute intracranial process. Follow up MRI can be performed as clinically indicated. [facility], , 07/16/2024 9:23 PM
[2024-07-16 23:18] LABS: Basophils # (A) 0.03 10*3/uL (0.00-0.10); Basophils % (A) 0.3 %; Eosinophils # (A) 0.09 10*3/uL (0.04-0.35); Eosinophils % (A) 0.8 %; HCT 44.1 % (39.6-50.0); HGB 15.1 g/dL (13.0-17.0); Lymphocytes # (A) 1.47 10*3/uL (0.90-5.00); Lymphocytes % (A) 13.5 %; MCH 30.3 pg (27.0-32.0); MCHC 34.2 g/dL (32.0-37.0); MCV 88.4 fL (80.0-97.0); Mean Platelet Volume 10.2 fL (9.5-12.2); Monocytes % (A) 3.7 %; Neutrophils # (A) 8.86 10*3/uL (1.80-7.70); Neutrophils % (A) 81.2 %; Platelet Count 233 10*3/uL (140-440); RBC 4.99 10*6/uL (4.40-5.60); WBC 10.91 10*3/uL (4.50-10.00)
[2024-07-16 23:36] LABS: ALT 29 U/L (4-49); AST 24 U/L (17-59); African American GFR (CKD) >90 (>60 ml/min/1.73 sqM); Albumin 3.7 g/dL (3.5-5.0); Alcohol <10 mg/dL; Alkaline Phosphatase 122 U/L (38-126); Anion Gap 8 mmol/L; Blood Urea Nitrogen 16 mg/dL (9-20); Calcium 8.5 mg/dL (8.4-10.2); Carbon Dioxide 22 mmol/L (22-30); Chloride 106 mmol/L (98-107); Glucose 137 mg/dL (74-99); Magnesium 1.5 mg/dL (1.6-2.3); Non-African American GFR(CKD) >90 (>60 ml/min/1.73 sqM); Potassium 3.2 mmol/L (3.5-5.1); Sodium 136 mmol/L (137-145); Total Bilirubin 0.6 mg/dL (0.2-1.3); Total Protein 6.2 g/dL (6.3-8.2)
[2024-07-17] MEDS: MAGNESIUM SULFATE-D5W PMX 1 GM in DEXTROSE/WATER 1 100ML.BAG IVPB ONE (00:34)
[2024-07-17] MEDS: POTASSIUM CHLORIDE ER 20 MEQ TAB.ER PO STA (00:35)
[2024-07-17 00:43] LABS: Appearance,Urine Clear (Clear); Bilirubin,Urine Negative (Negative); Blood,Urine Negative (Negative); Color,Urine Light Yellow; Glucose,Urine (UA) Negative (Negative); Ketones,Urine Negative (Negative); Leukocyte Esterase,Urine Negative (Negative); Nitrite,Urine Negative (Negative); PH, Urine 5.5 (5.0-8.0); Protein,Urine Trace (Negative); Specific Gravity,Urine 1.018 (1.001-1.035); Urobilinogen,Urine <2.0 mg/dL (<2.0)
[2024-07-17 00:58] LABS: Amphetamine Screen,Urine Not Detected (NotDetected); Barbiturate Screen,Urine Not Detected (NotDetected); Benzodiazepines Screen,Urine Not Detected (NotDetected); Cocaine Screen,Urine Not Detected (NotDetected); Methadone Screen, Urine Not Detected (NotDetected); Opiate Screen,Urine Not Detected (NotDetected); Oxycodone Screen, Urine Not Detected (NotDetected); Phencyclidine Screen,Urine Not Detected (NotDetected); Tricyclic Antidepressant,Urine Not Detected (NotDetected); Urn Cannabinoid Scrn Detected (NotDetected)
[2024-07-17] MEDS ORDERED: NALOXONE 0.4 MG/ML 1 ML VIAL IV PRN (01:35)
--- NOTE | 2024-07-17 01:35 | ED ---
Seizure HPI - General Chief Complaint: Seizure Stated Complaint: Fall,Seizure Time Seen by Provider: 07/16/24 20:38 Source: EMS Mode of arrival: EMS Limitations: no limitations - History of Present Illness Initial Comments: 49-year-old male brought in for seizure-like activity. Patient was outside working on his motorcycle when his girlfriend heard a loud sound and saw that he was on the ground and convulsing. Patient did bite his tongue and lose control of his bladder according to EMS. His girlfriend reports that afterwards he was initially unable to answer questions and once he was more awake he still was quite confused. He now is alert and oriented x 3 and back at his baseline. He reports that he does not remember having any symptoms prior to the incident. He reports that he was working on his motorcycle and then suddenly woke up with EMS surrounding him. The patient has no history of seizures. He denies any chronic health conditions, although he states he does not regularly go to the doctor. States that he drinks socially and was not drinking today. He smokes about a pack of cigarettes per day and occasionally smokes marijuana. He denies any chest pain, difficulty breathing, abdominal pain, nausea, vomiting, dizziness, headache, vision or hearing changes, numbness, tingling, weakness. - Related Data Home Medications Medication Instructions Recorded Confirmed No Known Home Medications 08/08/20 08/08/20 Allergies Allergy/AdvReac Type Severity Reaction Status Date / Time No Known Allergies Allergy Verified 07/16/24 20:36 Review of Systems ROS Statement: Those systems with pertinent positive or pertinent negative responses have been documented in the HPI. ROS Other: All systems not noted in ROS Statement are negative. Past Medical History Past Medical History: No Reported History History of Any Multi-Drug Resistant Organisms: None Reported Past Surgical History: No Surgical Hx Reported Past Psychological History: No Psychological Hx Reported Smoking Status: Current every day smoker Past Alcohol Use History: Occasional Past Drug Use History: Marijuana General Exam Limitations: no limitations General appearance: alert, in no apparent distress Head exam: Present: atraumatic, normocephalic, normal inspection Eye exam: Present: normal appearance, PERRL, EOMI. Absent: periorbital swelling Pupils: Present: normal accommodation ENT exam: Present: other (Patient does have some small lacerations to the bottom of his tongue from biting) Neck exam: Present: normal inspection. Absent: tenderness, meningismus Respiratory exam: Present: normal lung sounds bilaterally. Absent: respiratory distress, wheezes, rales, rhonchi, stridor Cardiovascular Exam: Present: regular rate, normal rhythm, normal heart sounds. Absent: systolic murmur, diastolic murmur, rubs, gallop, clicks Neurological exam: Present: alert, oriented X3 Expanded Patient oriented to: Present: person, place, time Speech: Present: fluid speech Cranial nerves: EOM's Intact: Normal, Tongue Deviation: Normal, Facial Sensation: Normal Sensory exam: Upper Extremity Light Touch: Normal, Lower Extremity Light Touch: Normal Motor strength exam: RUE: 5, LUE: 5, RLE: 5, LLE: 5 Eye Response: (4) open spontaneously Motor Response: (6) obeys commands Verbal Response: (5) oriented [place] Total: 15 Psychiatric exam: Present: normal affect, normal mood Skin exam: Present: warm, dry, normal color Course Vital Signs 07/16/24 07/17/24 07/17/24 20:29 00:30 02:45 Temperature 97.9 F Pulse Rate 78 78 73 Respiratory 18 18 18 Rate Blood Pressure 148/97 129/99 142/93 O2 Sat by Pulse 96 98 98 Oximetry Medical Decision Making - Medical Decision Making Was pt. sent in by a medical professional or institution (NIKHIL Yusuf, PANEL MACHINE OPERATOR, urgent care, hospital, or senior living...) When possible be specific @ -No Did you speak to anyone other than the patient for history (EMS, parent, family, police, friend...)? What history was obtained from this source @ -Girlfriend Did you review nursing and triage notes (agree or disagree)? Why? @ -I reviewed and agree with nursing and triage notes Were old charts reviewed (outside hosp., previous admission, EMS record, old EKG, old radiological studies, urgent care reports/EKG's, senior living records)? Report findings @ -No old charts were reviewed Differential Diagnosis (chest pain, altered mental status, abdominal pain women, abdominal pain men, vaginal bleeding, weakness, fever, dyspnea, syncope, headache, dizziness, GI bleed, back pain, seizure, CVA, palpatations, mental health, musculoskeletal)? @ -MDM Differential Seizure: Recurrent seizure disorder, febrile seizure, alcohol withdrawal, stimulants, meningitis, encephalitis, intercranial hemorrhage, intracranial tumor, stroke, eclampsia, thyrotoxicosis, hypocalcemia, hyponatremia, hypernatremia, hypomagnesemia, psychogenic… this is not meant to be an all-inclusive list EKG interpreted by me (3pts min.). @ -EKG shows sinus rhythm ventricular rate 73. TX interval 188 QRS 113 QT 346 QTc 373 X-rays interpreted by me (1pt min.). @ -None done CT interpreted by me (1pt min.). @ -No acute process seen on brain CT U/S interpreted by me (1pt. min.). @ -None done What testing was considered but not performed or refused? (CT, X-rays, U/S, la bs)? Why? @ -None What meds were considered but not given or refused? Why? @ -None Did you discuss the management of the patient with other professionals (professionals i.e. , PA, PANEL MACHINE OPERATOR, lab, RT, psych nurse, social service technician, senior ssis developer, teacher, disability hearing officer, business case analyst)? Give summary @ -My attending spoke with the [facility] provider on-call who accepted admission Was smoking cessation discussed for >3mins.? @ -No Was critical care preformed (if so, how long)? @ -No Were there social determinants of health that impacted care today? How? (Homelessness, low income, unemployed, alcoholism, drug addiction, transportation, low edu. Level, literacy, decrease access to med. care, fdc, rehab)? @ -No Was there de-escalation of care discussed even if they declined (Discuss DNR or withdrawal of care, Hospice)? DNR status @ -No What co-morbidities impacted this encounter? (DM, HTN, Smoking, COPD, CAD, Cancer, CVA, ARF, Chemo, Hep., AIDS, mental health diagnosis, sleep apnea, morbid obesity)? @ -None Was patient admitted / discharged? Hospital course, mention meds given and route, prescriptions, significant lab abnormalities, going to OR and other pertinent info. @ -49-year-old male brought in for seizure-like activity. Patient has no history of seizures. History and physical examination are conducted. Patient is alert and oriented x 3 and has returned to his baseline mental status. GCS 15 with no focal neurological deficits. Potassium 3.2, patient received oral replacement magnesium 1.5 patient receiving IV replacement. Urine toxicology positive for marijuana. Serum alcohol less than 10. No acute process seen on brain CT. On reassessment the patient is resting comfortably and shows no acute signs of distress. States that he was having some itching to the palm of his ri ght hand and was given Benadryl. He is educated on today's findings. He will be admitted for further evaluation by neurology. He is agreeable with this plan. I discussed this case with my attending Dr. Jimenez Undiagnosed new problem with uncertain prognosis? @ -No Drug Therapy requiring intensive monitoring for toxicity (Heparin, Nitro, Insulin, Cardizem)? @ -No Were any procedures done? @ -No Diagnosis/symptom? @ -New onset seizure Acute, or Chronic, or Acute on Chronic? @ -Acute Uncomplicated (without systemic symptoms) or Complicated (systemic symptoms)? @ -Complicated Side effects of treatment? @ -No Exacerbation, Progression, or Severe Exacerbation? @ -No Poses a threat to life or bodily function? How? (Chest pain, [place], [place], pneumonia, PE, COPD, DKA, ARF, appy, cholecystitis, CVA, Diverticulitis, Homicidal, Suicidal, threat to staff... and all critical care pts) @ -Yes - Lab Data Result diagrams: 07/16/24 23:01 07/16/24 23:01 Lab Results 07/16/24 07/16/24 07/16/24 Range/Units 20:31 23:01 23:01 WBC 10.91 H (4.50-10.00) 10*3/uL RBC 4.99 (4.40-5.60) 10*6/uL Hgb 15.1 (13.0-17.0) g/dL Hct 44.1 (39.6-50.0) % MCV 88.4 (80.0-97.0) fL MCH 30.3 (27.0-32.0) pg MCHC 34.2 (32.0-37.0) g/dL Plt Count 233 (140-440) 10*3/uL MPV 10.2 (9.5-12.2) fL Immature Gran % (Auto) 0.5 % Neutrophils % 81.2 % Lymphocytes % 13.5 % Monocytes % 3.7 % Eosinophils % 0.8 % Basophils % 0.3 % Immature Gran # 0.06 H (0.00-0.04) 10*3/uL Neutrophils # 8.86 H (1.80-7.70) 10*3/uL Lymphocytes # 1.47 (0.90-5.00) 10*3/uL Monocytes # 0.40 (0.20-1.00) 10*3/uL Eosinophils # 0.09 (0.04-0.35) 10*3/uL Basophils # 0.03 (0.00-0.10) 10*3/uL Sodium 136 L (137-145) mmol/L Potassium 3.2 L (3.5-5.1) mmol/L Chloride 106 (98-107) mmol/L Carbon Dioxide 22 (22-30) mmol/L Anion Gap 8 mmol/L BUN 16 (9-20) mg/dL Creatinine 0.68 (0.66-1.25) mg/dL Est GFR (CKD-EPI)AfAm >90 (>60 ml/min/1.73 sqM) Est GFR (CKD-EPI)NonAf >90 (>60 ml/min/1.73 sqM) Glucose 137 H (74-99) mg/dL POC Glucose (mg/dL) 125 H (70-110) mg/dL POC Glu Software Requirements Engineer YFN Rai Calcium 8.5 (8.4-10.2) mg/dL Magnesium 1.5 L (1.6-2.3) mg/dL Total Bilirubin 0.6 (0.2-1.3) mg/dL AST 24 (17-59) U/L ALT 29 (4-49) U/L Alkaline Phosphatase 122 (38-126) U/L Total Protein 6.2 L (6.3-8.2) g/dL Albumin 3.7 (3.5-5.0) g/dL Urine Color Urine Appearance (Clear) Urine pH (5.0-8.0) Ur Specific [place] (1.001-1.035) Urine Protein (Negative) Urine Glucose (UA) (Negative) Urine Ketones (Negative) Urine Blood (Negative) Urine Nitrite (Negative) Urine Bilirubin (Negative) Urine Urobilinogen (<2.0) mg/dL Ur Leukocyte Esterase (Negative) Urine Opiates Screen (NotDetected) Ur Oxycodone Screen (NotDetected) Urine Methadone Screen (NotDetected) Ur Barbiturates Screen (NotDetected) U Tricyclic Antidepress (NotDetected) Ur Phencyclidine Scrn (NotDetected) Ur Amphetamines Screen (NotDetected) U Methamphetamines Scrn (NotDetected) U Benzodiazepines Scrn (NotDetected) Urine Cocaine Screen (NotDetected) U Marijuana (THC) Screen (NotDetected) Serum Alcohol <10 mg/dL 07/17/24 Range/Units 00:19 WBC (4.50-10.00) 10*3/uL RBC (4.40-5.60) 10*6/uL Hgb (13.0-17.0) g/dL Hct (39.6-50.0) % MCV (80.0-97.0) fL MCH (27.0-32.0) pg MCHC (32.0-37.0) g/dL Plt Count (140-440) 10*3/uL MPV (9.5-12.2) fL Immature Gran % (Auto) % Neutrophils % % Lymphocytes % % Monocytes % % Eosinophils % % Basophils % % Immature Gran # (0.00-0.04) 10*3/uL Neutrophils # (1.80-7.70) 10*3/uL Lymphocytes # (0.90-5.00) 10*3/uL Monocytes # (0.20-1.00) 10*3/uL Eosinophils # (0.04-0.35) 10*3/uL Basophils # (0.00-0.10) 10*3/uL Sodium (137-145) mmol/L Potassium (3.5-5.1) mmol/L Chloride (98-107) mmol/L Carbon Dioxide (22-30) mmol/L Anion Gap mmol/L BUN (9-20) mg/dL Creatinine (0.66-1.25) mg/dL Est GFR (CKD-EPI)AfAm (>60 ml/min/1.73 sqM) Est GFR (CKD-EPI)NonAf (>60 ml/min/1.73 sqM) Glucose (74-99) mg/dL POC Glucose (mg/dL) (70-110) mg/dL POC Glu Software Requirements Engineer ID Calcium (8.4-10.2) mg/dL Magnesium (1.6-2.3) mg/dL Total Bilirubin (0.2-1.3) mg/dL AST (17-59) U/L ALT (4-49) U/L Alkaline Phosphatase (38-126) U/L Total Protein (6.3-8.2) g/dL Albumin (3.5-5.0) g/dL Urine Color Light Yellow Urine Appearance Clear (Clear) Urine pH 5.5 (5.0-8.0) Ur Specific [place] 1.018 (1.001-1.035) Urine Protein Trace H (Negative) Urine Glucose (UA) Negative (Negative) Urine Ketones Negative (Negative) Urine Blood Negative (Negative) Urine Nitrite Negative (Negative) Urine Bilirubin Negative (Negative) Urine Urobilinogen <2.0 (<2.0) mg/dL Ur Leukocyte Esterase Negative (Negative) Urine Opiates Screen Not Detected (NotDetected) Ur Oxycodone Screen Not Detected (NotDetected) Urine Methadone Screen Not Detected (NotDetected) Ur Barbiturates Screen Not Detected (NotDetected) U Tricyclic Antidepress Not Detected (NotDetected) Ur Phencyclidine Scrn Not Detected (NotDetected) Ur Amphetamines Screen Not Detected (NotDetected) U Methamphetamines Scrn Not Detected (NotDetected) U Benzodiazepines Scrn Not Detected (NotDetected) Urine Cocaine Screen Not Detected (NotDetected) U Marijuana (THC) Screen Detected H (NotDetected) Serum Alcohol mg/dL Disposition Clinical Impression: New onset seizure Disposition: ADMITTED IP TO THIS HOSP Condition: Fair Time of Disposition: 01:34
[2024-07-17] MEDS: diphenhydrAMINE 50 MG/ML 1 ML VIAL IVP STA (01:50)
[2024-07-17] MEDS ORDERED: LORazepam 1 MG/0.5 ML VIAL IV PRN ×2 (03:08→21:33)
--- NOTE | 2024-07-17 12:47 | P.CNNES ---
History of Present Illness Consult date: 07/17/24 Requesting physician: Alex Banda Reason for Consult: New onset seizure History of Present Illness: Patient is a 49-year-old right-handed male came to the hospital by ambulance yesterday at 8:26 PM for new onset seizure. Patient states that yesterday he was working on his bicycle, and took almost an hour. After he got done, he was putting tools away when without any warning he passed out and woke up on the floor. Patient has bitten his tongue and lost control of urine. He states that he was quite confused when he woke up, had no knowledge of anything. His called EMS and patient states that he does not remember EMS arriving at their home and ride to the hospital, although he was confused why they were taking him to the hospital. As per EMS flowsheet when they arrived, patient was kneeling in the ground. While his girlfriend, she was upstairs and heard something outside. When she ca me outside it appeared to her that he was having a full body seizure. Patient does not have a history of seizure. When EMS arrived patient was looking postictal, not able to recall any of the events and he was alert and oriented x 2 at that time. Patient also appears to have bitten the inside of his lip and was incontinent of urine. Stroke scale was negative. Blood glucose was 132. Throughout the transport, patient's level of consciousness improved and eventually was alert orient x 4. Patient's vitals at the scene was blood pressure 166/101, which came up to 173/103, pulse 100, respiration 18 saturation 96%. Blood test showed WBC 10.91 hemoglobin is normal platelets normal sodium 136 potassium 3.2, normal renal functions. Hepatic panel normal. UA negative. Urine drug screen positive for marijuana. Blood alcohol level negative. CT head showed no acute intracranial process. I personally reviewed CT head, agree with the findings. EKG showed sinus rhythm. Home medications include none. Patient has smoked 1 pack/day for 20 years, denies any alcohol or drug use. Occasionally smokes marijuana. Last time he did marijuana was about a month ago. Denies any blood pressure or diabetes. No previous history of seizure ever in the past, no history of concussions or family history of epilepsy. Review of Systems All pertinent positive and negative review of systems mentioned in the HPI. Past Medical History Past Medical History: No Reported History History of Any Multi-Drug Resistant Organisms: None Reported Past Surgical History: No Surgical Hx Reported Past Anesthesia/Blood Transfusion Reactions: No Reported Reaction Past Psychological History: No Psychological Hx Reported Smoking Status: Current every day smoker Past Alcohol Use History: Occasional Past Drug Use History: Marijuana Medications and Allergies Home Medications Medication Instructions Recorded Confirmed Type No Known Home Medications 08/08/20 07/17/24 History Allergies Allergy/AdvReac Type Severity Reaction Status Date / Time No Known Allergies Allergy Verified 07/17/24 09:58 Physical Examination - Vital Signs Vital Signs: Vital Signs Temp Pulse Pulse Resp BP BP BP 07/17/24 07:00 98.8 F 72 16 109/57 07/17/24 03:43 98.5 F 85 20 121/69 07/17/24 02:45 73 18 142/93 07/17/24 00:30 78 18 129/99 07/16/24 20:29 97.9 F 78 18 148/97 Pulse Ox 07/17/24 07:00 97 07/17/24 03:43 97 07/17/24 02:45 98 07/17/24 00:30 98 07/16/24 20:29 96 Intake and Output 07/16/24 07/17/24 07/17/24 22:59 06:59 14:59 Intake Total 118 Balance 118 Intake: Oral 118 Other: # Voids 1 Weight 77.111 kg 77.111 kg Patient is a middle-aged male, in no acute distress. Patient is alert awake oriented to time place and person. Speech and language functions are normal. Patient can name and repeat very well. No aphasia or dysarthria. Attention, concentration and fund of knowledge is adequate. On cranial nerve examination, pupils are equal, round and reacting to light, visual foote are full on confrontation, with no neglect on double simultaneous stimulation. Extraocular muscles are intact with no nystagmus. Face is symmetric, tongue protrudes to the midline. Palatal elevation and sensation normal, hearing and shoulder shrug normal, facial sensation normal. Patient has evidence of tongue bite tita. Patient has poor dentition. On muscle strength testing, there is no pronator drift and the strength is normal in arms and legs distally and proximally. Deep tendon reflexes are symmetric 1+ at the biceps and brachioradialis, trace at the knees, 1 at ankles and plantars downgoing. Sensory to touch is equal with no neglect on double simultaneous stimulation. Cerebellar function showed no ataxia for [id number] testing. No dysdiadochokinesia. No ataxia for [id number] testing on either side. Tone and bulk of muscles normal. Gait deferred.. On general examination, there is no carotid bruit or murmur, S1-S2 audible. Chest is clear on consultation. Abdomen is soft nontender. No organomegaly, bowel sounds present. Peripheral pulses are present. No peripheral edema. Results - Laboratory Findings CBC and BMP: 07/16/24 23:01 07/16/24 23:01 Abnormal Lab Findings: Abnormal Labs 07/16/24 07/16/24 07/16/24 20:31 23:01 23:01 WBC 10.91 H Immature Gran # 0.06 H Neutrophils # 8.86 H Sodium 136 L Potassium 3.2 L Glucose 137 H POC Glucose (mg/dL) 125 H Magnesium 1.5 L Total Protein 6.2 L Urine Protein U Marijuana (THC) Screen 07/17/24 00:19 WBC Immature Gran # Neutrophils # Sodium Potassium Glucose POC Glucose (mg/dL) Magnesium Total Protein Urine Protein Trace H U Marijuana (THC) Screen Detected H Assessment and Plan Assessment: * New onset seizure, unclear cause. * Mild hypokalemia and hyponatremia, likely not the cause. * Marijuana use * Tobacco use Plan: * MRI of the brain with and without contrast * EEG * Hold antiepileptic medication, unless EEG shows any clear epileptiform activity. * Recommend abstaining from tobacco and marijuana use. * Patient informed of [place] state law of no driving unless seizure-free for 6 months, climbing ladders, operating dangerous machinery or unsupervised swimming. * Neurology will follow. Thank you for the consult.
--- NOTE | 2024-07-17 21:34 | P.HPIM ---
History of Present Illness This is a pleasant 49 years old male who presents because of being unresponsive found on the floor. Patient states yesterday on Wednesday he was working in his garage on his bicycle changing his flat tire, once he is done he suddenly passed out, his girlfriend came to check on him and found him on the floor. Patient was not sure but he thinks he was in the car for about 10 minutes when he woke up he was confused after that as he confirms. Also patient reports passing urine on himself and bitten his tongue on the right side. He did not have witnessed tonic-clonic seizure-like activity. Currently he is awake alert no abnormal movements no headache dizziness weakness or numbness no chest pain dyspnea no GI/ symptom. No fever or chills He smokes about 1 pack/day and he was counseled to quit, he agrees he will quit 1 day but not ready now and he agrees to the nicotine patch. No alcohol no illicit drugs. Patient has no history of seizure before. Vital stable and afebrile Has unremarkable CBC and BMP and urine analysis Urine drug screen is positive for marijuana.; An EKG showing sinus rhythm at [address]-T changes and CT brain was negative for acute process. He was started on as needed Ativan admitted with neurology consult Review of Systems Review of systems CONSTITUTIONAL: No fever, no malaise, no fatigue. HEENT: No recent visual problems or hearing problems. Denied any sore throat. CARDIOVASCULAR: No orthopnea, PND, no palpitations, no syncope. PULMONARY: No shortness of breath, no cough, no hemoptysis. GASTROINTESTINAL: No diarrhea, no nausea, no vomiting, no abdominal pain. Normoactive bowel sounds. NEUROLOGICAL: No headaches, no weakness, no numbness. HEMATOLOGICAL: Denies any bleeding or petechiae. GENITOURINARY: Denies any burning micturition, frequency, or urgency. MUSCULOSKELETAL/RHEUMATOLOGICAL: Denies any joint pain, swelling, or any muscle pain. ENDOCRINE: Denies any polyuria or polydipsia. Past Medical History Past Medical History: No Reported History History of Any Multi-Drug Resistant Organisms: None Reported Past Surgical History: No Surgical Hx Reported Past Anesthesia/Blood Transfusion Reactions: No Reported Reaction Past Psychological History: No Psychological Hx Reported Smoking Status: Current every day smoker Past Alcohol Use History: Occasional Past Drug Use History: Marijuana Medications and Allergies Home Medications Medication Instructions Recorded Confirmed Type No Known Home Medications 08/08/20 07/17/24 History Allergies Allergy/AdvReac Type Severity Reaction Status Date / Time No Known Allergies Allergy Verified 07/17/24 09:58 Physical Exam Vitals: Vital Signs Temp Pulse Pulse Resp BP BP BP 07/17/24 14:31 97.5 F L 66 15 120/70 07/17/24 07:00 98.8 F 72 16 109/57 07/17/24 03:43 98.5 F 85 20 121/69 07/17/24 02:45 73 18 142/93 07/17/24 00:30 78 18 129/99 07/16/24 20:29 97.9 F 78 18 148/97 Pulse Ox 07/17/24 14:31 98 07/17/24 07:00 97 07/17/24 03:43 97 07/17/24 02:45 98 07/17/24 00:30 98 07/16/24 20:29 96 Intake and Output 07/17/24 07/17/24 07/17/24 06:59 14:59 22:59 Intake Total 236 Balance 236 Intake: Oral 236 Other: # Voids 1 3 Weight 77.111 kg GENERAL: The patient is alert and oriented x3, not in any acute distress. Well developed, well nourished. HEENT: Pupils are round and equally reacting to light. EOMI. No scleral icterus. No conjunctival pallor. Normocephalic, atraumatic. No pharyngeal erythema. No thyromegaly. CARDIOVASCULAR: S1 and S2 present. No murmurs, rubs, or gallops. PULMONARY: Chest is clear to auscultation, no wheezing , no crackles. ABDOMEN: Soft, nontender, nondistended, normoactive bowel sounds. No palpable organomegaly. MUSCULOSKELETAL: No joint swelling or deformity. EXTREMITIES: No cyanosis, clubbing, or pedal edema. NEUROLOGICAL: Gross neurological examination did not reveal any focal deficits. SKIN: No rashes. no petechiae. Results CBC & Chem 7: 07/16/24 23:01 07/16/24 23:01 Labs: Abnormal Lab Results - Last 24 Hours (Table) 07/16/24 07/16/24 07/16/24 Range/Units 20:31 23:01 23:01 WBC 10.91 H (4.50-10.00) 10*3/uL Immature Gran # 0.06 H (0.00-0.04) 10*3/uL Neutrophils # 8.86 H (1.80-7.70) 10*3/uL Sodium 136 L (137-145) mmol/L Potassium 3.2 L (3.5-5.1) mmol/L Glucose 137 H (74-99) mg/dL POC Glucose (mg/dL) 125 H (70-110) mg/dL Magnesium 1.5 L (1.6-2.3) mg/dL Total Protein 6.2 L (6.3-8.2) g/dL Urine Protein (Negative) U Marijuana (THC) Screen (NotDetected) 07/17/24 Range/Units 00:19 WBC (4.50-10.00) 10*3/uL Immature Gran # (0.00-0.04) 10*3/uL Neutrophils # (1.80-7.70) 10*3/uL Sodium (137-145) mmol/L Potassium (3.5-5.1) mmol/L Glucose (74-99) mg/dL POC Glucose (mg/dL) (70-110) mg/dL Magnesium (1.6-2.3) mg/dL Total Protein (6.3-8.2) g/dL Urine Protein Trace H (Negative) U Marijuana (THC) Screen Detected H (NotDetected) Thrombosis Risk Factor Assmnt - Choose All That Apply Each Factor Represents 1 point: Age 41-60 years Other Risk Factors: No Other congenital or acquired thrombophilia - If yes, enter type in comment: No Thrombosis Risk Factor Assessment Total Risk Factor Score: 1 Thrombosis Risk Factor Assessment Level: Low Risk Assessment and Plan Assessment: Transient period of unresponsiveness suspicious for seizure when patient bit his tongue and posterior himself followed by confusion (postictal confusion) Nicotine dependence Substance abuse with marijuana Plan: Continue with Ativan as needed Neurology team consulted Patient benefit from EEG Follow-up MRI of the brain ordered by neurologist Labs and medication were reviewed.. Continue same treatment. Continue with symptomatic treatment. Resume home medication. Monitor labs and vitals. DVT and GI prophylaxis. Further recommendations as per clinical course of the patient DVT prophylaxis: Subcutaneous heparin GI Prophylaxis: Pepcid
[2024-07-18] MEDS: HEPARIN SODIUM,PORCINE 5,000 UNIT/ML 1 ML VIAL SQ SCH (09:14)
[2024-07-18] MEDS: FAMOTIDINE 20 MG/2 ML VIAL IV SCH (09:15)
[2024-07-18] MEDS: diphenhydrAMINE 50 MG/ML 1 ML VIAL IVP PRN (11:51)
[2024-07-18] MEDS: TOBRAMYCIN 0.3% OPHTH DROPS 5 ML BTL BOTH EYES SCH (16:09)
--- NOTE | 2024-07-18 16:34 | MR ---
EXAMINATION TYPE: MR brain wo/w con DATE OF EXAM: 07/18/2024 3:55 PM COMPARISON: 07/16/2024. CLINICAL INDICATION: Male, 49 years old with history of New osnet seizure; PHH, New onset seizures TECHNIQUE: Multi planar, multi sequence imaging was performed through the brain including: T1, T2, In version recovery, susceptibility weighted imaging and gradient echo imaging and Diffusion weighted im aging. The patient was then given intravenous contrast and multi planar, T1 fat-saturation images wer e obtained. IV Contrast: 7 mL Gadobutrol FINDINGS: The garrett-white junctions, ventricular system, basal cisterns appear unremarkable. Diffusion-weighted imaging shows no evidence of restricted diffusion to suggest acute/subacute infarct. Intracranial ar terial flow voids are maintained. Midline structures show no abnormality. Scattered foci of high T2 s ignal intensity are seen within the periventricular white matter. The susceptibility weighted images do not reveal any evidence for micro-hemorrhage. After administration of gadolinium, no abnormal enha ncement is seen. The bone marrow signal is within normal limits. Paranasal sinuses and mastoid air cells: No significant paranasal sinus disease. Visualized orbits: Orbital contents are intact. IMPRESSION: 1. No evidence of intracranial mass, acute/subacute infarct, or abnormal enhancement. 2. Nonspecific white matter changes, likely related to small vessel ischemic disease. [facility], , 07/18/2024 4:31 PM
--- NOTE | 2024-07-18 19:30 | P.PN ---
Subjective Progress Note Date: 07/18/24 Patient was seen for a follow-up. No further seizures. Patient complaining of some periorbital swelling, occurring off and on. Sometimes gets swelling in the hands. I had recommended patient to discuss with his primary physician. Objective - Vital Signs Vital signs: Vital Signs Temp 98.1 F 07/18/24 19:22 Pulse 70 07/18/24 19:22 Resp 16 07/18/24 19:22 BP 112/66 07/18/24 19:22 Pulse Ox 95 07/18/24 19:22 FiO2 Intake & Output 07/18/24 07/18/24 07/19/24 06:59 18:59 06:59 Intake Total 236 Balance 236 Intake: Oral 236 Other: Voiding Method Toilet # Voids 2 2 - Exam Nonfocal. - Labs CBC & Chem 7: 07/16/24 23:01 07/16/24 23:01 Assessment and Plan Assessment: * New onset seizure, unprovoked, unclear cause. * Mild hypokalemia and hyponatremia, likely not the cause. * Marijuana use * Tobacco use Plan: * MRI of the brain with and without contrast revealed no evidence of intracranial mass, acute/subacute infarct or abnormal enhancement. Nonspecific white matter changes, likely related to small vessel ischemic disease. I personally reviewed MRI, agree with the findings. * EEG as per preliminary report was borderline abnormal because of excessive amount of low voltage fast frequency beta activity suggestive of medication effect. No focal, lateralized or epileptiform activity was seen. * No indication for antiepileptic medication, as this was his first unprovoked seizure, and all workup as above, came back negative. * Recommend abstaining from tobacco and marijuana use. * Patient informed of [place] state law of no driving unless seizure-free for 6 months, climbing ladders, operating dangerous machinery or unsupervised swimming. * Neurologically clear for discharge.
--- NOTE | 2024-07-18 20:50 | P.PN ---
Subjective This is a pleasant 49 years old male who presents because of being unresponsive found on the floor. Patient states yesterday on Wednesday he was working in his garage on his bicycle changing his flat tire, once he is done he suddenly passed out, his girlfriend came to check on him and found him on the floor. Patient was not sure but he thinks he was in the car for about 10 minutes when he woke up he was confused after that as he confirms. Also patient reports passing urine on himself and bitten his tongue on the right side. He did not have witnessed tonic-clonic seizure-like activity. Currently he is awake alert no abnormal movements no headache dizziness weakness or numbness no chest pain dyspnea no GI/ symptom. No fever or chills He smokes about 1 pack/day and he was counseled to quit, he agrees he will quit 1 day but not ready now and he agrees to the nicotine patch. No alcohol no illicit drugs. Patient has no history of seizure before. Vital stable and afebrile Has unremarkable CBC and BMP and urine analysis Urine drug screen is positive for marijuana.; An EKG showing sinus rhythm at [address]-T changes and CT brain was negative for acute process. He was started on as needed Ativan admitted with neurology consult 07/18 Patient doing well today, no abnormal movement or seizure-like activity No headache or dizziness No other new complaint however last time bedside nurse said patient has eye puffiness that usually goes away with Benadryl, which was prescribed for him however today he still have bilateral conjunctivitis and periorbital puffiness. Bacterial source versus allergic reaction versus other is suspected and patient was started on tobramycin Of note patient has no diplopia or vision loss or difficulty. He does not have painful eye movement. No fever or leukocytosis. There is no proptosis and there is no evidence of angioedema. Therefore we will going to continue with Benadryl and topical antibiotic and monitor by tomorrow EEG showing no seizure-like activity and MRI of the brain is negative. I discussed the case with the neurologist cleared her for discharge I discussed the plan with the patient and is agreeable Review of systems CONSTITUTIONAL: No fever, no malaise, no fatigue. HEENT: No recent visual problems or hearing problems. Denied any sore throat. HEMATOLOGICAL: Denies any bleeding or petechiae. GENITOURINARY: Denies any burning micturition, frequency, or urgency. MUSCULOSKELETAL/RHEUMATOLOGICAL: Denies any joint pain, swelling, or any muscle pain. ENDOCRINE: Denies any polyuria or polydipsia. Active Medications Generic Name Dose Route Start Last Admin Trade Name Freq PRN Reason Stop Dose Admin Diphenhydramine HCl 25 mg 07/18/24 11:29 07/18/24 11:51 Diphenhydramine 50 Mg/Ml 1 Ml Vial IVP 25 mg Q6HR PRN Administration Allergy Symptoms Famotidine 20 mg 07/18/24 09:00 07/18/24 20:42 Famotidine 20 Mg/2 Ml Vial IV 20 mg Q12HR JASSI Administration Heparin Sodium (Porcine) 5,000 unit 07/18/24 09:00 07/18/24 20:42 Heparin Sodium,Porcine 5,000 Unit/Ml 1 Ml Vial SQ 5,000 unit Q12HR JASSI Administration Lorazepam 1 mg 07/17/24 21:33 Lorazepam 1 Mg/0.5 Ml Vial IV Q4HR PRN Seizures Naloxone HCl 0.2 mg 07/17/24 01:35 Naloxone 0.4 Mg/Ml 1 Ml Vial IV Q2M PRN Opioid Reversal Tobramycin 2 drops 07/18/24 15:00 07/18/24 20:43 Tobramycin 0.3% Ophth Drops 5 Ml Btl BOTH EYES 2 drops Q3HR JASSI Administration Objective - Vital Signs Vital signs: Vital Signs Temp 98.1 F 07/18/24 06:58 Pulse 61 07/18/24 06:58 Resp 16 07/18/24 06:58 BP 113/68 07/18/24 06:58 Pulse Ox 96 07/18/24 06:58 FiO2 Intake & Output 07/17/24 07/18/24 07/18/24 18:59 06:59 18:59 Intake Total 236 236 Balance 236 236 Intake: Oral 236 236 Other: Voiding Method Toilet # Voids 3 2 2 - Exam GENERAL: The patient is alert and oriented x3, not in any acute distress. Well developed, well nourished. HEENT: Pupils are round and equally reacting to light. EOMI. No scleral icterus. No conjunctival pallor. Normocephalic, atraumatic. No pharyngeal erythema. No thyromegaly. -Bilateral conjunctivitis and periorbital puffiness CARDIOVASCULAR: S1 and S2 present. No murmurs, rubs, or gallops. PULMONARY: Chest is clear to auscultation, no wheezing , no crackles. ABDOMEN: Soft, nontender, nondistended, normoactive bowel sounds. No palpable organomegaly. MUSCULOSKELETAL: No joint swelling or deformity. EXTREMITIES: No cyanosis, clubbing, or pedal edema. NEUROLOGICAL: Gross neurological examination did not reveal any focal deficits. SKIN: No rashes. no petechiae. - Labs CBC & Chem 7: 07/16/24 23:01 07/16/24 23:01 Assessment and Plan Assessment: Bilateral conjunctivitis and periorbital puffiness. Differential diagnosis include bacterial, versus allergic vs viral versus angioedema versus other Transient period of unresponsiveness suspicious for seizure when patient bit his tongue and posterior himself followed by confusion (postictal confusion) Nicotine dependence Substance abuse with marijuana Plan: Continue with Ativan as needed EEG and MRI of the brain were completed. Reviewed by neurologist who cleared her for discharge. Unlikely seizure medication required per neurologist. Continue with Benadryl and tobramycin eyedrops for his conjunctivitis and we will continue monitoring Labs and medication were reviewed.. Continue same treatment. Continue with symptomatic treatment. Resume home medication. Monitor labs and vitals. DVT and GI prophylaxis. Further recommendations as per clinical course of the patient DVT prophylaxis: Subcutaneous heparin GI Prophylaxis: Pepcid
[2024-07-19 14:31] VITALS: BP 132/81; PULSE 66; RESP 16; TEMP 98.1
[2024-07-19] MEDS ORDERED: Potassium Replacement Protocol 1 EACH MISC MISCELLANE PRN (14:41)
[2024-07-19] MEDS ORDERED: Magnesium Replacement Protocol 1 EACH MISC MISCELLANE PRN (14:42)
[2024-07-19 16:30] LABS: Magnesium 1.8 mg/dL (1.6-2.3); Potassium 3.9 mmol/L (3.5-5.1)
[2024-07-19] MEDS: POTASSIUM CHLORIDE ER 20 MEQ TAB.ER PO STA (17:14)
[2024-07-19] MEDS: MAGNESIUM SULFATE-D5W PMX 1 GM in DEXTROSE/WATER 1 100ML.BAG IVPB ONE (17:15)
--- NOTE | 2024-07-20 10:07 | EEG ---
ELECTROENCEPHALOGRAM REPORT PREAMBLE: This is a 49-year-old male, who has new-onset seizure. No previous history of seizures. CURRENT MEDICATIONS: Ativan as needed. EEG FINDINGS: 21-channel digital EEG recorded with video component, utilizing 10/20 international system with referential and bipolar montages. Background consists of moderately well developed, well regulated, predominantly low-voltage fast frequency beta activity seen in bihemispheric region. Occasional 10 hertz alpha activity was seen, which is posterior dominant and is reactive to eye opening and closing. Photic driving response was not clearly seen. Different stages of sleep were not seen. No focal or generalized epileptiform activity was seen. No electrographic seizure was recorded. IMPRESSION: This is a mildly abnormal EEG due to presence of excessive amount of low-voltage fast frequency beta activity, suggestive of medication effect. No focal, lateralized or epileptiform activity was seen. MMDEVORA / BRI: [id number] /
--- NOTE | 2024-08-03 09:27 | P.DS ---
Providers Date of admission: 07/17/24 01:57 Attending physician: Joss Yang MD Consults: 07/17/24 01:35 Consult Physician Urgent Consulting Provider: Jeannine Rubio Consult Reason/Comments: New onset seizure Do you want consulting provider notified?: Yes, Notify in am Primary care physician: [place] [facility] Course: Diagnoses Bilateral conjunctivitis and periorbital puffiness. Differential diagnosis include bacterial, versus allergic vs viral versus angioedema versus other Transient period of unresponsiveness suspicious for seizure when patient bit his tongue and posterior himself followed by confusion (postictal confusion). No indication for seizure medication per Neurologist Nicotine dependence Substance abuse with marijuana Hospital course: This is a pleasant 49 years old male who presents because of being unresponsive found on the floor. Patient states yesterday on Wednesday he was working in his garage on his bicycle changing his flat tire, once he is done he suddenly passed out, his girlfriend came to check on him and found him on the floor. Patient was not sure but he thinks he was in the car for about 10 minutes when he woke up he was confused after that as he confirms. Patient evaluated by neurology service and diagnosed with new onset of seizure. CT of the brain was unremarkable. Patient evaluated by neurologist, No indication for antiepileptic medication, as this was his first unprovoked seizure, and all workup as above, came back negative Patient remained clinically stable, he has some bilateral conjunctivitis and periorbital puffiness he was prescribed antibiotic eyedrops, today he showed interval improvement upon discharge and his conjunctivitis and swelling significantly improved more than 50%. No headache dizziness no other new complaint. Patient was cleared for discharge by neurologist Patient was eager to be discharged. He said he is going to leave no matter what. Problems and management plan were discussed with the patient and he verbalized understanding and acceptance Patient was found stable and can be discharged home in guarded prognosis however he needs follow-up as an outpatient. Patient was instructed to follow up with PCP within one week and patient agrees Patient was instructed to follow-up with neurologist as an outpatient in 2 weeks and he agrees. Contact information for Dr. stone is provided for him and he is agreeable Physical exam Gen: patient is a AAOx3, no distress CVS: S1-S2, RRR, no murmur Lungs: B/L CTA, no wheezing Abdomen: soft, no distention, no tenderness, positive bowel sounds Extremity: no leg edema or induration Time spent more than 35 minutes Patient Condition at Discharge: Fair Plan - Discharge Summary Discharge Rx Participant: No New Discharge Prescriptions: New Tobramycin 0.3% Ophth Soln [Tobrex 0.3% Ophth Soln] 2 drops BOTH EYES Q3HR #5 ml Discharge Medication List Tobramycin 0.3% Ophth Soln [Tobrex 0.3% Ophth Soln] 2 drops BOTH EYES Q3HR #5 ml 07/19/24 [Rx] Follow up Appointment(s)/Referral(s): Eric Stone MD [Medical Doctor] - 2 Weeks Levi Cooper MD [Primary Care Provider] - 1-2 days Patient Instructions/Handouts: Seizure/Epilepsy Discharge Instructions & Follow-Up Activity/Diet/Wound Care/Special Instructions: * Recommend abstaining from tobacco and marijuana use. * Patient informed of [place] state law of no driving unless seizure-free for 6 months, climbing ladders, operating dangerous machinery or unsupervised swimming. heart heathy diet activity is restricted till you see your doctor Discharge Disposition: HOME SELF-CARE
== END 2024-07-19 18:11 | disposition home or self-care (01) ==
LOC: EC 20:26 → 6NMEDSUR 07-17 01:56 → INTOOBSV 07-17 01:57 → OBSVTOIN 07-17 01:57 → 6NMEDSUR 07-17 02:35
PROVIDERS: ADMIT Internal Medicine; ATTEND Internal Medicine
DX: R56.9 Unspecified convulsions (principal); E87.6 Hypokalemia; E87.1 Hypo-osmolality and hyponatremia; H10.9 Unspecified conjunctivitis; F17.210 Nicotine dependence, cigarettes, uncomplicated
CPT/HCPCS: 96376 ×2; 96366; 96372 ×2; 96375 ×2; 96361; 96365; 99285; 36415; 95816; 93005; 80053; 83735 ×2; 84132; 85025; 81003; 80306; 80320; 70450; 70553; G0378 ×3; J1200 ×2; J1644 ×2; J3475 ×2; A9585; J1308 ×2